=== PATIENT | male | born 1975 | race Caucasian/White ===

== ENCOUNTER 2020-10-24 09:09 | Emergency (ER) | payer OTHER, SELFPAY ==
[2020-10-24 09:14] VITALS: BP 139/83; PULSE 62; TEMP 36.7; O2SAT 98
--- NOTE | 2020-10-24 09:22 | ED.GENADUL_ITS ---
Discharge Plan Disposition Patient Disposition: HOME Condition: Stable Discharge Details Clinical Impression: Sacroiliac joint pain, Muscle spasm, Groin pain Primary Care Provider: None,None ED Provider: Stefania Mancia Home Meds and New Rx's Prescriptions: New methocarbamol 750 mg tablet 750 mg PO QID PRN (Reason: muscle spasm) Qty: 14 RF: 0 Continued ibuprofen 200 mg Tablet 600 mg PO Q6H PRNRF: 0 Discharge Instructions Instructions: Muscle Spasm (ED) Additional Instructions: Imaging is reassuring here today. Please encourage hydration. Please continue with Tylenol and/or ibuprofen as needed for discomfort. Please dose as directed on the packaging. You may continue to use lidocaine patches or other topical op tions to help with comfort as well. To help with muscle spasm, please use the methocarbamol as prescribed. As we discussed, this can make you fatigued and should not drive or operate heavy machinery while using this. Please not drink alcohol or use medication. Referral for local primary care has been sent my best to follow-up with them next week for reevaluation. If you develop changes in her bowel or bladder function, sensation changes, weakness, fevers or other new/worsening symptoms please seek care urgently once again. Also attached is referral for physical therapy, please call number at the top of the family to schedule follow-up appointment. Stand Alone Forms: Physical Therapy Referral Discharge Data Discharge Date/Time-TO BE ENTERED AT DEPARTURE: 10/24/20 11:01 Medical Decision Making Patient is a pleasant 45-year-old male presenting today with chief complaint of right lower back and right groin pain. He reports that he throws his back out approximately twice per year. States that typically with stretching and exercise this will resolve. Reports he had 1/episode approximately 1 month ago. Has been recovering well, states he was almost back to baseline. However, he reports that after doing repetitive lifting at work 4 days ago he began having his right lower back pain as well as anterior groin pain. Reports that this is worse when he is lifting, and he is in prolonged sitting or lying positions. Is having trouble getting comfortable at night before sleeping. Is using NSAIDs to help comfort. Reports the pain is radiates slightly down the anterior aspect of his thigh. No rash. Denies fevers or chills. Denies any change in bowel or bladder habits. Denies any testicular pain or abdominal pain. Denies any numbness or tingling. On exam, patient appears nontoxic. Normal gait. He reports that the movement that he is walking he does improve his discomfort. Patient indicates the SI joint area of discomfort but none is elicited with palpation. No other midline tenderness, no step-off. He has full range of motion with rotation, minimal discomfort elicited over the right SI joint when he rotates to the left. Is able to do as well. Pain is more so with flexion and again indicates over the SI joint. Patient does have pain in the groin with axial loading and rotation of the right hip. He does have good range of motion of the hip and does not have pain with this aside from feeling like it stretching. 2+ distal pulses, sensation intact, abdomen benign. Patient has no pain with palpation over the greater trochanter. Patient is back pain is most consistent with SI joint pain, also concern for muscular discomfort based on his description. However, with the patient's pain with axial loading, I am concerned about potential arthritic discomfort versus other hip pathology. He does not have evidence of trochanteric bursitis at this time. Will obtain x-rays. Will augment the NSAIDs with Tylenol and a lidocaine patch. Patient would likely benefit from muscle relaxer but describes himself here to hold off on this. However, this may help the patient with sleep. Also discussed physical therapy. I do not see any evidence at this time to suggest infectious pathology, cauda equina. FINDINGS: BONES: No acute fracture is present. No bony destructive lesion is seen. Enthesophytes at greater trochanters. Degenerative changes lower lumbar spine. Hip joint space is well maintained. JOINTS: No dislocation present. SOFT TISSUE: Normal. IMPRESSION: Unremarkable radiographs of the right hip. Unremarkable radiographs of the pelvis. Discussed the findings with the patient. Advised most consistent with SI joint pain and muscle spasm. Encourage gentle stretching, frequent ambulation. We will continue with Tylenol and ibuprofen as needed for discomfort. He will continue with topical patches to help with discomfort. We will also prescribe muscle relaxant. As patient is driving, he will wait and take this if he returns home. Will refer to physical therapy. Patient does not have a local primary care, I will asked that he get follow-up next week for reevaluation. All the return precautions were discussed. All questions and concerns were addressed with agreement this plan. HPI General Mode of arrival: ambulatory . Date/Time Provider Initiated Documentation: 10/24/20 09:22 . Limitations to Documentation: no limitations . Information obtained by: patient and RN notes reviewed . History of Present Illness 45 year old M presents to the emergency department with the chief complaint of right hip pain, described as moderate, with intensity rated at 5. Quality is described as aching, and is localized to the back, right and lower extremity. Patient reports no radiation. Patient started experiencing this day(s) (4) and it has been constant. Movement improves symptom(s), Immoblization worsens symptoms . Patient notes no other symptoms.. Patient did receive the following treatments prior to arrival, none Related Data Home Medications Medication Instructions Recorded Confirmed ibuprofen 600 mg PO Q6H PRN 10/24/20 10/24/20 methocarbamol 750 mg PO QID PRN #14 tab 10/24/20 Previous Rx's Medication Instructions Recorded methocarbamol 750 mg PO QID PRN #14 tab 10/24/20 Allergies Allergy/AdvReac Type Severity Reaction Status Date / Time No Known Allergies Allergy Unverified 10/24/20 09:20 General Stated Complaint: Orthopedic MATEO: 4 Review of Systems Constitutional Constitutional: Reports as per HPI, Denies chills, Denies fever(s) and Denies frequent falls Cardiovascular Cardiovascular: Denies chest pain, Denies dyspnea and Denies dyspnea on exertion Respiratory Respiratory: Denies dyspnea and Denies dyspnea on exertion Gastrointestinal Gastrointestinal: Denies abdominal pain, Denies change in bowel habits and Denies fecal incontinence Genitourinary Genitourinary: Reports as per HPI (denies any testicular pain), Denies urinary hesitancy and Denies urinary incontinence Musculoskeletal Musculoskeletal: Reports as per HPI, Reports back pain, Denies muscle weakness, Denies numbness, Denies radiating pain into limb, Reports stiffness and Denies tingling Integumentary/Breasts Skin/Breast: Reports as per HPI and Denies rash Neurologic Neurologic: Reports as per HPI, Denies frequent falls, Denies localized weakness, Denies numbness, Denies radicular pain, Denies sensory deficit, Denies tingling and Denies paresthesias PFSH Social History Smoking/Tobacco Use Status: Current every day Tobacco Type: cigarettes Smoking risk assessment performed?: Yes Alcohol Intake: current Alcohol Intake frequency: a few times a week Alcohol type: beer Drug use: Never Substance use type: does not use Do you feel safe at home: Yes Do you feel safe in your relationship?: Yes Exam Const General: cooperative, healthy appearing, comfortable, no acute distress, well developed and well groomed Nutritional Appearance: well nourished and overweight Orientation: alert and awake Resp Effort & Inspection: normal respiratory effort and able to speak in complete sentences Auscultation: clear to auscultation bilaterally, no rales, no rhonchi and no wheezes Cardio Rate: regular rate Rhythm: regular rhythm Heart Sounds: S1 normal and S2 normal GI Inspection: normal to inspection Palpation: nontender Back/Spine/Pelvis Back: no CVA tenderness Thoracic/Lumbar Spine: thoracic and lumbar spine normal to inspection, bend over test abnormal (causes discomfort in right SI joint), No mass, No paraspinal tenderness, thoraco-lumbar ROM limited (with forward flexion), No thoraco-lumbar spasm, No thoracic spinal tenderness, No lumbar spinal tenderness and No straight leg raise positive Pelvis: no pain with anterior-posterior compression and no pain with lateral compression Sacroiliac joints: on the right tender to palpation Sacrum: no tenderness Skin General skin exam: no rashes or lesions noted Neuro General: patient alert and patient awake Cognition: normal cognition Speech: speech normal Gait: normal gait Motor: muscle tone normal throughout, strength 5/5 throughout, no movement abnormalities noted and no fasciculations Sensory Exam: no sensory deficits noted (no saddle paresthesias) DTR's: Rt Patellar: 2+, Lt Patellar: 2+, Rt Ankle: 2+ and Lt Ankle: 2+ Extrem General: normal to inspection, full ROM, capillary refill normal, no joint enlargement, no pedal edema, no calf tenderness and normal gait Psych Appearance: grossly normal and well kempt Mental Status: mental status grossly normal Speech and Movement: speech and movement normal Course Vital Signs Vital signs: Vital Signs Temperature 36.7 C 10/24/20 09:14 Pulse 62 10/24/20 09:14 Pulse Oximetry 98 10/24/20 09:14 Temperature 36.7 C 10/24/20 09:14 Temperature Source Temporal Artery Scan 10/24/20 09:14 Pulse 62 10/24/20 09:14 Respiratory Effort Non-Labored 10/24/20 09:18 Blood Pressure Position Sitting 10/24/20 09:14 Pulse Oximetry 98 10/24/20 09:14 Oxygen Delivery Method Room Air 10/24/20 09:14 Oxygen Flow Rate 0 10/24/20 09:14 Pain Level 5 10/24/20 09:14
--- NOTE | 2020-10-24 09:30 | DI.RAD_ITS ---
Exam(s) XR HIP RT COMPLETE AP PELVIS EXAM: XR HIP RT COMPLETE AP PELVIS CLINICAL HISTORY: groin pain. TECHNIQUE: 2D digital imaging was performed. COMPARISON: No exams were available for comparison FINDINGS: BONES: No acute fracture is present. No bony destructive lesion is seen. Enthesophytes at greater tr ochanters. Degenerative changes lower lumbar spine. Hip joint space is well maintained. JOINTS: No dislocation present. SOFT TISSUE: Normal. IMPRESSION: Unremarkable radiographs of the right hip. Unremarkable radiographs of the pelvis. DATA REPOSITORY: RADIATION DOSE DELIVERED:
[2020-10-24] MEDS: Acetaminophen 500 MG TAB 1000 MG PO (09:43)
[2020-10-24] MEDS: Lidocaine 5% Patch 1 PATCH TP (09:44)
--- NOTE | 2020-10-24 10:57 | NUR.NOTE ---
referral to cm for pcp follow up
== END 2020-10-24 11:01 | disposition home or self-care (01) ==
PROVIDERS: Emergency Provider Physician Assistant
DX: M54.5 Low back pain (principal); M25.551 Pain in right hip; M53.3 Sacrococcygeal disorders, not elsewhere classified; M62.830 Muscle spasm of back; X50.3XXA Overexertion from repetitive movements, initial encounter
CPT/HCPCS: 99283; 73502; 99284

== ENCOUNTER 2020-12-08 02:02 | Outpatient (CLI) | payer OTHER, SELFPAY ==
[2020-12-08 17:15] LABS: ALT 42 U/L (16-63); AST 18 U/L (15-37); Albumin 3.9 g/dL (3.4-5.0); Alkaline Phosphatase 70 U/L (46-116); Anion Gap 8.9 mmol/L (3-11); BUN 17 mg/dL (7-18); Bilirubin, Total 0.3 mg/dL (0.2-1.0); CO2 28.1 mmol/L (21.0-32.0); CREATININE 1.2 mg/dL (0.70-1.30); Calcium 9.2 mg/dL (8.5-10.1); Chloride 106 mmol/L (98-107); Glucose 84 mg/dL (74-106); Potassium 3.9 mmol/L (3.5-5.1); Sodium 143 mmol/L (136-145)
[2020-12-08 17:35] LABS: Calculated LDL 162 mg/dL (<100); Cholesterol 249 mg/dL (<200); HDL Cholesterol 43 mg/dL (40-60); Triglyceride 224 mg/dL (<150)
[2020-12-09 10:57] LABS: HIV-1/2 Ag & Ab Screen Negative (Negative)
[2020-12-09 12:37] LABS: Hepatitis C Ab w Rflx HCV PCR Negative (Negative)
== END 2020-12-08 02:03 | disposition home or self-care (01) ==
LOC: LBO 02:03
PROVIDERS: PCP Nurse Practitioner Adult Health; Visit Provider Nurse Practitioner Adult Health
DX: Z00.00 Encounter for general adult medical examination without abnormal findings (principal); N52.9 Male erectile dysfunction, unspecified; Z13.220 Encounter for screening for lipoid disorders; Z13.1 Encounter for screening for diabetes mellitus; Z11.4 Encounter for screening for human immunodeficiency virus [HIV]; Z11.59 Encounter for screening for other viral diseases
CPT/HCPCS: 36415; 80053; 80061; 86803; 87389

== ENCOUNTER 2021-02-27 03:22 | Outpatient (CLI) | payer OTHER, SELFPAY ==
[2021-02-27 16:13] LABS: Source Nasal/Nares
[2021-02-27 21:40] LABS: COVID-19 PCR Negative (Negative)
== END 2021-02-27 03:23 | disposition home or self-care (01) ==
LOC: LBO 03:22
PROVIDERS: PCP Nurse Practitioner Adult Health; Visit Provider Surgery
DX: Z20.822 Contact with and (suspected) exposure to COVID-19 (principal); Z01.818 Encounter for other preprocedural examination
CPT/HCPCS: 87635

== ENCOUNTER 2021-02-28 09:59 | Day surgery (SDC) | payer OTHER, SELFPAY ==
--- NOTE | 2021-02-27 15:28 | HPE_ITS ---
Date of service: 02/28/21 Assessment and Plan Assessment and plan (1) Umbilical hernia: Status: Acute Assessment and plan: Risks of the surgery include but are not limited to: Bleeding/infection/pneumonia/damage to blood vessels or bladder or bowels/blood clots or PE/chronic pain/urinary retention/chronic numbness/reoccurrence/reaction to mesh requiring removal/damage to testicle or sterility/complications of anesthesia. The pt will have a pre-Op PE to ensure fitness for anesthesia. The procedure will be done with abx and under sterile conditions. The pt requires a ride home from surgery and someone to stay with t he pt for 24 hrs after anesthesia. No lifting over 5 pounds for 2 weeks after surgery. History of Present Illness Narrative: pt has a symptomatic umbilical hernia He has not had any surgery through this area before. Bleeding/infection/pneumonia/damage to blood vessels or bladder or bowels/blood clots or PE/chronic pain/urinary retention/chronic numbness/reoccurrence/reaction to mesh requiring removal, damage to bowels, adhesions or SBO, complications of anesthesia. The pt will have a pre-Op PE to ensure fitness for anesthesia. The procedure will be done with abx and under sterile conditions. The pt requires a ride home from surgery and someone to stay with the pt for 24 hrs after anesthesia. No lifting over 5 pounds for 2 weeks after surgery. Review of Systems All systems reviewed & are unremarkable except as noted in HPI and below PFSH All Active Problems Colon cancer screening (Acute) Male erectile disorder (Acute) History of nicotine dependence (Chronic) Umbilical hernia (Acute) Sacroiliac joint pain (Acute) Muscle spasm (Acute) Groin pain (Acute) Medical History Nicotine use disorder Quit nicotine 2010 Family History Brother , ( 07/05/2017) Cancer Esophageal Father Diabetes Hypertension Social History Smoking/Tobacco Use Status: Former Tobacco Use Quit Date: 03/18/05 Tobacco: How many years used: 21 Smoking risk assessment performed?: Yes Alcohol Intake: current Alcohol Intake frequency: a few times a week Alcohol type: beer Drug use: Never Substance use type: does not use Adopted: No Caregiver/Support person: No Foster care: No Household members: spouse and children Housing: house Number of Children: 4 number of grandchildren: 0 Communication Needs: None Education Level: college Details: bachelor's degree Do you need help understanding health information?: Rarely current occupation: [employer] Pets and animals: Yes Pets and animals: cat(s), dog(s), horse(s) and farm animals Sexually active: Yes Do you think of yourself as: straight/heterosexual Current gender identity: male What is your relationship status?: How often do you talk on the phone with friends or family?: three or more times per week How often do you get together with friends or relatives?: twice per week Do you belong to any clubs or organized social groups?: yes Panel score (0-1 are the most socially isolated patients): 3 What type of physical activity do you participate in: walking, weight lifting and running Duration: 30-45 minutes/day Frequency: 3-4 times per week Barbara/Tenriism: Congregational Special barbara needs: No Seatbelt use: sometimes Helmet use: No Drive intox or ride w/intox medical driver: No Do you feel safe at home: Yes Do you feel safe in your relationship?: Yes Meds Allergies and Home Medications Allergies Allergy/AdvReac Type Severity Reaction Status Date / Time No Known Allergies Allergy Verified 02/27/21 11:31 Home Medications Medication Instructions Recorded Confirmed Type ibuprofen 600 mg PO Q6H PRN 10/24/20 02/27/21 History acetaminophen 500 mg capsule 500 mg PO Q6H PRN 11/02/20 02/27/21 History naproxen 500 mg tablet 250 - 500 mg PO BID PRN #40 tab 11/02/20 02/27/21 Rx methocarbamol 750 mg tablet 750 - 1,500 mg PO QID PRN #60 tab 11/16/20 02/27/21 Rx sildenafil 100 mg tablet 50 - 100 mg PO DAILY PRN #20 tab 02/24/21 02/27/21 Rx Exam Const General: cooperative, healthy appearing, comfortable, no acute distress, well developed and well groomed Nutritional Appearance: average body habitus and well nourished Orientation: alert, awake and oriented x3 [facility] Head: normal to inspection, normocephalic and atraumatic Ears: hearing grossly normal bilaterally and external ears normal General nose exam: external nose normal Face and sinus: normal facial exam and sinuses nontender Mouth: oral mucosae normal, lip normal, tongue normal and moist mucous membranes Teeth and gingiva: dentition normal Eyes General: appearance normal, both eyes and all related structures Conjunctivae: conjunctivae normal Sclera: sclerae normal Pupils: PERRL Neck Neck: normal visual inspection and full ROM Chest Chest: normal inspection of the chest Resp Effort & Inspection: normal respiratory effort, able to speak in complete sentences, no cough, no nasal flaring, not tachypneic and no use of accessory muscles Auscultation: clear to auscultation bilaterally, no rales, no rhonchi and no wheezes Cardio Jugular venous pressure: no JVD Rate: regular rate Rhythm: regular rhythm GI Inspection: normal to inspection, no edema and non-distended Palpation: soft, no masses, nontender and No ascites Auscultation: normal bowel sounds Skin General skin exam: no rashes or lesions noted Trauma: no lacerations or abrasions Neuro General: patient alert, patient oriented x3, oriented, gait normal, moves all extremities, no focal motor deficits and CN's II-XI intact bilaterally Cognition: normal cognition Speech: speech normal Gait: normal gait Motor: muscle tone normal throughout Extrem General: normal to inspection, full ROM and no clubbing, cyanosis or edema Psych Appearance: grossly normal and well kempt Mental Status: mental status grossly normal Speech and Movement: speech and movement normal Affect: normal affect
[2021-02-28] VITALS (7 sets, daily range): BP systolic 127–148; BP diastolic 71–92; PULSE 62–72; RESP 16–22; TEMP 36.3–36.6; O2SAT 94–99; BMI 37.6
--- NOTE | 2021-02-28 09:33 | W.ANESPRE ---
General Info Date of Service Date Performed: 02/28/21 Height: 6 ft 1.5 in Weight: 131.258 kg Body Mass Index (BMI): 37.6 Surgical Procedure: Operation Date: 02/28/21 12:40 Proposed Procedures Side Surgeon p Herniorrhaphy Umbilical w/mesh Salima Dolan, Meds Allergies and Home Medications Allergies Allergy/AdvReac Type Severity Reaction Status Date / Time No Known Allergies Allergy Verified 02/28/21 10:31 Home Medication Medication Instructions Recorded ibuprofen 600 mg PO Q6H PRN 10/24/20 acetaminophen 500 mg capsule 500 mg PO Q6H PRN 11/02/20 naproxen 500 mg tablet 250 - 500 mg PO BID PRN #40 tab 11/02/20 methocarbamol 750 mg tablet 750 - 1,500 mg PO QID PRN #60 tab 11/16/20 sildenafil 100 mg tablet 50 - 100 mg PO DAILY PRN #20 tab 02/24/21 Current Visit Medications: Current Medications Generic Name Dose Route Start Last Admin Trade Name Freq PRN Reason Stop Dose Admin Ringer's Solution 1,000 mls @ 80 mls/hr 02/28/21 06:00 IV 03/29/21 23:59 INFUSION PRIMO Ondansetron HCl 4 mg/ Sodium 52 mls @ 200 mls/hr 02/28/21 07:32 Chloride IVPB Q6H PRN PRN Cefazolin Sodium/Dextrose 2 gm in 50 mls @ 100 mls/hr 02/28/21 09:15 Ancef Duplex IVPB PREOP PRIMO IV Miscellaneous Supplies 1 each 02/28/21 06:00 Iv Access IV 03/29/21 23:59 DIRECTED PRIMO Morphine Sulfate 2 mg 02/28/21 07:32 Morphine 4 Mg/Ml Syr IVP Q1H PRN PRN Sodium Chloride 0 ml 02/28/21 06:00 Normal Saline Flush 10 Ml Syr IV 03/29/21 23:59 PRN PRN Sodium Chloride 0 ml 02/28/21 06:00 Normal Saline 10 Ml Vial IJ 03/29/21 23:59 DIRECTED PRN Sterile Water 0 ml 02/28/21 06:00 Water,Injection,Sterile 10 Ml Vial IJ 03/29/21 23:59 DIRECTED PRN Tramadol HCl 50 mg 02/28/21 07:32 Tramadol 50 Mg Tab PO Q6H PRN PRN Pain PFSH Active Problems Active Problems: Problem Status Onset Code Colon cancer screening Z12.11 Male erectile disorder N52.9 History of nicotine dependence Z87.891 Umbilical hernia K42.9 Sacroiliac joint pain M53.3 Muscle spasm M62.838 Groin pain R10.30 Medical History Medical History Nicotine use disorder Quit nicotine 2010 Tobacco Smoking/Tobacco Use Status: Former Tobacco Use Tobacco: How many years used: 21 Passive smoking exposure: No Alcohol Alcohol Intake: current Alcohol intake frequency: a few times a week Alcohol type: beer Substance Use Substance use: Never Substance use type: does not use Vital Signs and Lab Results Vital Signs Most Recent Vital Signs in EMR: Temp Pulse Resp BP Pulse Ox 36.6 C 63 18 136/91 H 98 02/28/21 10:27 02/28/21 10:27 02/28/21 10:27 02/28/21 10:27 02/28/21 10:27 Lab Results Blood Type / Crossmatch: No Data to Display Complete Blood Count: No Data to Display Complete Metabolic Panel: No Data to Display Liver Function Panel: No Data to Display Coagulation Panel: No Data to Display Cardiac Panel: No Data to Display Arterial Blood Gas: No Data to Display Venous Blood Gas: No Data to Display Pancreas Panel: No Data to Display Thyroid Panel: No Data to Display Infectious Disease: Coronavirus (COVID-19)(PCR) Negative (Negative) 02/27/21 11:22 02/27/21 Coronavirus 2019 Source Nasal/Nares 02/27/21 11:22 02/27/21 Blood Cultures: No Data to Display Toxicology Panel: No Data to Display Anesthesia Assessment and Plan Anesthesia History Personal History: No History of Anesthesia Complications Family History: No Family History of Anesthesia Complications Exercise Tolerance Exercise Tolerance: Metabolic Equivalents<4 Cardiac & Pulmonary Exam Cardiac Exam: Normal S1/S2 Heart Sounds Pulmonary Exam: Clear Bilateral Breath Sounds Implantable Cardiac Device Does patient have a Pacemaker or an ICD?: No Airway Exam Known Difficult Airway: No Mallampati Class: 3 Mouth Opening: Narrow (< 3cm) Thyromental Distance: Greater than 3 cm Neck Range of Motion: Full ROM Neck Circumference: Thick Teeth Condition: Normal Dentition ASA Classification ASA Score: ASA 2 Emergency Case?: No NPO Status NPO Status: NPO Clears >2 hours, Solids >8 hours Anesthesia Plan Resuscitation Status: Full Code Anesthesia Technique: General Anesthesia Airway Planned: LMA Pain Management: Surgeon and patient request nerve block Monitors Used: Standard Monitors Preoperative Comments:: 45 yo male for umbilical hernia. Sig PMHx: former smoker, occ EtOH. Denies major issues. Occ GERD r/t diet.
[2021-02-28] MEDS: Lactated Ringers 1,000 ML 80 ML IV (11:00)
[2021-02-28] MEDS: ceFAZolin 2 GM/50 ML BAG IVPB (11:59)
--- NOTE | 2021-02-28 12:06 | W.PM.OP ---
Date of service: 02/28/21 Time of Service: 12:06 Operative Note Operative Note DATE OF PROCEDURE: 02/28/21 PRE-OP DIAGNOSIS: symptamatic umbilical hernia POST-OP DIAGNOSIS: same PROCEDURE: open repair w/ mesh SURGEON: Salima Loza CREDIT CORRESPONDENCE CLERK: Ria Morales ANESTHESIA TYPE: Local By Surgeon, General LMA/ETT and Primary Nerve Block Refer to Anesthesia Record ESTIMATED BLOOD LOSS: 5 PATHOLOGY: none sent COMPLICATIONS: None Patient was transported to: PACU Patient's condition: stable Procedure Description: The pt is here today for symptomatic umbilical hernia and is here today for repair. Informed consent was obtained, explaining risks and benefits of the procedure including but not limited to bleeding, infection, pneumonia, blood clots, recurrence, chronic pain or chronic numbness, reaction to mesh necessitating removal, complications of anesthesia and other unforetold complications. DESCRIPTION OF PROCEDURE: The patient was brought to the operating suite and placed in supine position. Anesthesia was administered per the Department of Anesthesia. Nerve block is done per the Dept of anesthesia w/ experel. Patient prepped and draped in the usual sterile fashion using DuraPrep scrub solution. IV antibiotics were administered. Pause for the cause was done. 20cc of .25% Marcaine is used for local anesthetic. A 1-inch incision was made in the inferiorly to the umbilicus. Umbilicus was dissected off the fascia. The surrounding tissue is dissected off the fascia. Omentum is protruding through the defect. This was returned to the abdomen. It is not infarcted. A small Kerlix patch was then placed in the defect, the defect was closed, over sewn with 2-0 vicryl and was copiously irrigated. An additional 10cc of Experel is is instilled into the wound at the time of closure. Deep tissue was approximated with 3-0 Vicryl and skin was approximated with 4-0 Monocryl in a running subcuticular fashion. Skin glue was applied. The patient tolerated the procedure well without complications and was transferred to recovery room in stable condition. SALIMA LOZA DO
--- NOTE | 2021-02-28 12:08 | W.PM.DSUDISC ---
Discharge Plan Disposition Patient Disposition: HOME Condition: Good Discharge Details Reason For Visit: hernia repair Attending Provider: Salima Dolan Primary Care Provider: Belle Garcia Home Meds and New Rx's Prescriptions: New tramadol 50 mg tablet 50 mg PO Q6H PRNQty: 10 RF: 0 Continued acetaminophen 500 mg capsule 500 mg PO Q6H PRNRF: 0 naproxen 500 mg tablet 250 - 500 mg PO BID PRN (Reason: pain) Qty: 40 RF: 0 methocarbamol 750 mg tablet 750 - 1,500 mg PO QID PRN (Reason: muscle spasm) Qty: 60 RF: 1 sildenafil [Viagra] 100 mg tablet 50 - 100 mg PO DAILY PRN (Reason: sexual activity) Qty: 20 RF: 3 ibuprofen 200 mg Tablet 600 mg PO Q6H PRNRF: 0 Discharge Instructions Additional Instructions: Dr. Dolan HERNIA REPAIR ? POSTOPERATIVE INSTRUCTIONS Patients who have this type of surgery can usually be expected to return to work within two weeks and have minimal amounts of discomfort. ? ACTIVITY: The day of surgery should be spent resting. However, you can be up for short periods of time, I.E., going to the bathroom or kitchen. Avoid lifting or straining. On the day following surgery, you can be up and about as desired. ? LIFTING: Restrict your lifting to no more than five (5) pounds for the first week following surgery. For the second week after surgery, don?t lift more than ten pounds. We will decide when you are done with restrictions and when you can return to work, at your follow-up appointment. No sexual activity for two weeks. ? DIET: There are no dietary restrictions following surgery. However, you may want to start with small amounts of liquids to avoid nausea the day of surgery. ? INCISION CARE: You will notice purple skin glue closing the incision. Do not peel this off- it will wear off on its own. After 24 hours you may shower. The dressing may be replaced for comfort, but is not necessary. An ice bag may be applied to the incision for 72 hours following surgery. ? SIGNS OF INFECTION: It is not unusual to have some black and blue discoloration of the skin around the incision, but also scrotum and penis. It will slowly disappear. If you have any increased redness, drainage, fever (above 100 degrees), please contact your doctor for an examination. ? DISCOMFORT: You may expect to have some mild discomfort at the incision sight. If severe pain develops you should contact your doctor for further instructions. ? URINATION: Patients who have surgery occasionally have problems urinating. If you experience problems and are not able to urinate within 6 hours following your surgery, please call your doctor immediately or go to your nearest Emergency Room for evaluation. ? DRIVING: NO driving for three (3) days after surgery, or if you are still taking narcotic pain medication. ? MEDICATIONS: Alternate Tylenol 1000mg by mouth every 8 hours and Ibuprofen 600mg every 6 hours. Make sure you take ibuprofen with food and not on an empty stomach. Take the Tylenol and ibuprofen continuously for the first 72hrs- not just when you have pain. Use the tramadol for breakthrough pain. Use ICE! Twenty minutes on, and then off, continuously for the first 72hours. If you are taking narcotic pain medication, follow the instructions on the label and do not drive. Pain medications can make you very constipated. Make sure you are moving your bowels daily. If not, take Miralax, milk of magnesia or magnesium citrate. Anesthesia makes you very constipated. Take a dose of milk of magnesia the morning after surgery. ? REPORT: Unusual swelling, severe pain, unresolved nausea, signs of infection, or difficulty in urination to your surgeon. Follow up in clinic with Dr. Dolan in 2 weeks. [phone] Activity:: see above Remove Dressings/Wound Care:: 24 hours Shower/Bathe:: 24 hours Diet:: low fat Discharge Orders Discharge Orders: Discharge Order (Routine); Ordered 02/28/21 Ordered By: Salima Dolan DS: Diagnosis Discharge Diagnosis (1) Umbilical hernia: Status: Acute
--- NOTE | 2021-02-28 12:20 | W.ANESNERVE ---
Nerve Block Single Injection Procedure Date and Time Date Performed: 02/28/21 Procedure Start: 12:05 Location Where Procedure Performed Procedure Location: Operating Room Procedure Stop: 12:12 Reason Performed: Postoperative Analgesia Requesting Provider: Salima Dolan Timeout Performed Timeout Performed: Yes Monitoring Used ECG, Blood Pressure, SpO2 and ETCO2 Sterility Sterility: Hand Hygiene, Surgical Cap, Surgical Mask, Sterile Gloves and Chlorhexidine Sedation Given During Procedure Sedation Given (Indicate Dose Given): No Sedation given Patient Mental Status Patient Mental Status: Performed under general anesthesia Nerve Block 1st Nerve Block: Laterality: Bilateral Block Type: Rectus Sheath (Bilateral) Needle / Catheter Used: 100mm SonoPlex II Local Anesthetic Bolus (Indicate Dose Given): Injected in 3-5ml increments after negative blood aspiration, Half of Total block solution given into each side, Bupivacaine 0.375% Dose:: 30 mL and Exparel Dose:: 10 mL Additives (Indicate Dose Given): None Ultrasound: Sterile probe cover and gel used Ultrasound Image Saved?: Yes Nerve Stimulator: Not Used Paresthesia: None Procedure Tolerated: No Complications Procedure Outcome: Successful Performed By: Emile Cortez
[2021-02-28] MEDS: Bupivacaine LIPOSOME/PF 133 MG/10 ML VIAL IJ (12:36)
[2021-02-28] MEDS: Bupivacaine 0.25% Pres-Free 30 ML VIAL (12:49)
[2021-02-28] MEDS: fentaNYL 100 MCG/2 ML VIAL IVP (13:10)
--- NOTE | 2021-02-28 13:32 | W.ANESPOSTOP ---
Postoperative Evaluation Date, Time and Location Date Performed: 02/28/21 Time Performed: 13:33 Patient Location: PACU Vital Signs Most Recent Imported Vital Signs: Most Recent Vital Signs Temp Pulse Resp BP Pulse Ox 36.3 C L 62 16 147/86 H 95 02/28/21 13:26 02/28/21 13:26 02/28/21 13:26 02/28/21 13:26 02/28/21 13:26 Pain Score Most Recent Pain Score: Most Recent Pain Score Pain Level 3 02/28/21 13:26 Assessment Mental Status: Awake (Alert & Oriented to Patient Baseline) Airway and Respiratory Function: Patent airway with normal (patient baseline) respiratory exam Cardiovascular Function: Hemodynamically Stable Hydration Status: Adequately Hydrated Nausea & Vomiting: No Nausea or Vomiting Pain: Pt. Denies Any Pain Peripheral Nerve Block: Regional nerve block not resolved at time of post operative discharge
[2021-02-28] MEDS: traMADol 50 MG TAB PO (13:57)
== END 2021-02-28 14:50 | disposition home or self-care (01) ==
PROVIDERS: PCP Nurse Practitioner Adult Health; Visit Provider Surgery
PROC: (CPT 49585; principal; 2021-02-28 12:30)
DX: K42.9 Umbilical hernia without obstruction or gangrene (principal); Z87.891 Personal history of nicotine dependence
CPT/HCPCS: 49585; 76942; C1781; J0690; J1100; J1885; J2250; J2405; J2704; J3010

== ENCOUNTER 2021-08-04 09:55 | Day surgery (SDC) | payer OTHER, SELFPAY ==
--- NOTE | 2021-08-03 17:06 | COLE_ITS ---
Colonoscopy Report Date of procedure: 08/04/21 Pre-op diagnosis general: CRC screening Surgeon: Salima Dolan Anesthesia Type: General:No Airway Complications: None Disposition: same day Prep: Miralax/Dulcolax Procedure Description: After informed consent was obtained the patient was taken to the procedure room and placed in a left decubitous position. Monitors were applied and a time out was done. The patients name, date of , procedure, allergies to medications and metal in their body was reviewed. The patient was then sedated. Once sedated and comfortable a rectal exam was done. External exam was normal. Internal exam revealed a normal sphincter tone and no palpable masses. The scope was then introduced and retrofelexed. No internal hemorrhoids were identified. The scope was then advanced to the cecum w/out difficulty. The TI and appendiceal orifice were identified. The prep was BBPS 2 in all segments for a total of 6. The scope was then slowly retracted over 10 minutes back into the rectum. Th there are no diverticula or AVMs. The mucosa is pink and healthy with a normal vascular pattern. He has x2 polyps in the rectum. 1 is 0 .75 cm and pedunculated. This is removed with cold biopsy forcep. The other is 5 mm flat and is also removed with a cold biopsy forcep. All specimen is retrieved and no bleeding is noted the scope was removed and the patient was woken up and taken back to Same day surgery in stable condition. The patient tolerated the procedure well and there were no immediate complications. Follow up: The patient should follow up in 7 years, path pd, unless they develop changes in bowel habits or other new gastrointestinal complaints.
[2021-08-04 10:14] VITALS: BP 143/85; PULSE 60; RESP 16; TEMP 36.6; O2SAT 98
[2021-08-04] MEDS: Lactated Ringers 1,000 ML 80 ML IV (10:38)
--- NOTE | 2021-08-04 10:45 | ANES.PREOP_ITS ---
General Info Date of Service Date Performed: 08/04/21 Height: 6 ft 1 in Weight: 129.2 kg Body Mass Index (BMI): 37.5 Surgical Procedure: Operation Date: 08/04/21 11:05 Proposed Procedure Side Surgeon p Dennis Dolan, Meds Allergies and Home Medications Allergies Allergy/AdvReac Type Severity Reaction Status Date / Time No Known Allergies Allergy Verified 08/04/21 10:21 Home Medication Medication Instructions Recorded bisacodyl 5 mg tablet,delayed 5 mg PO ONCE colonscopy bowel prep 07/28/21 release (Dulcolax (bisacodyl)) #4 tabs multivitamin 1 tab PO DAILY 07/28/21 polyethylene glycol 3350 17 238 g PO ONCE colonoscopy prep 07/28/21 gram/dose oral powder #238 grams sildenafil 100 mg tablet (Viagra) 50 - 100 mg PO DAILY PRN sexual 08/02/21 activity #20 tabs Current Visit Medications: Current Medications Generic Name Dose Route Start Last Admin Trade Name Freq PRN Reason Stop Dose Admin Hyoscyamine Sulfate 0.125 mg 08/03/21 12:45 Hyoscyamine 0.125 Mg Sl/Oral/Chew SL DIRECTED PRN Ringer's Solution 1,000 mls @ 80 mls/hr 08/04/21 06:00 08/04/21 10:38 IV 09/02/21 23:59 80 mls/hr INFUSION PRIMO Administration IV Miscellaneous Supplies 1 each 08/04/21 06:00 Iv Access IV 09/02/21 23:59 DIRECTED PRIMO Ondansetron HCl 4 mg 08/03/21 12:45 Ondansetron 4 Mg/2 Ml Vial IVP Q4H PRN PRN Nausea / Vomiting Sodium Chloride 0 ml 08/04/21 06:00 Normal Saline Flush 10 Ml Syr IV 09/02/21 23:59 PRN PRN Sodium Chloride 0 ml 08/04/21 06:00 Normal Saline 10 Ml Vial IJ 09/02/21 23:59 DIRECTED PRN Sterile Water 0 ml 08/04/21 06:00 Water,Injection,Sterile 10 Ml Vial IJ 09/02/21 23:59 DIRECTED PRN PFSH Active Problems Active Problems: Problem Status Onset Code Colon cancer screening Z12.11 History of nicotine dependence Z87.891 Medical History Medical History Groin pain Male erectile disorder Trial RX Viagra Muscle spasm Nicotine use disorder Quit nicotine 2011 Sacroiliac joint pain Medical History Comments:: 2x chipped teeth; Bottom right molar and front top Surgical History Surgical History History of umbilical hernia repair (~02/28/21) Tobacco Smoking/Tobacco Use Status: Former Tobacco Use Passive smoking exposure: No Alcohol Alcohol Intake: current Alcohol intake frequency: a few times a week Alcohol type: beer Substance Use Substance use: Never Substance use type: does not use Details: alcohol:t-3, 5-6 beers Vital Signs and Lab Results Vital Signs Most Recent Vital Signs in EMR: Most Recent Vital Signs Temp Pulse Resp BP Pulse Ox 36.6 C 60 16 143/85 H 98 08/04/21 10:14 08/04/21 10:14 08/04/21 10:14 08/04/21 10:14 08/04/21 10:14 Lab Results Blood Type / Crossmatch: No Data to Display Complete Blood Count: No Data to Display Complete Metabolic Panel: No Data to Display Liver Function Panel: No Data to Display Coagulation Panel: No Data to Display Cardiac Panel: No Data to Display Arterial Blood Gas: No Data to Display Venous Blood Gas: No Data to Display Pancreas Panel: No Data to Display Thyroid Panel: 2 No Data to Display Infectious Disease: No Data to Display Blood Cultures: No Data to Display Toxicology Panel: No Data to Display Anesthesia Assessment and Plan Anesthesia History Personal History: No History of Anesthesia Complications Family History: No Family History of Anesthesia Complications Exercise Tolerance Exercise Tolerance: Metabolic Equivalents<4 Pertinent Negatives Pertinent Negatives: No Major Cardiovascular Symptoms or Complaints and No Major Pulmonary Symptoms or Complaints Cardiac & Pulmonary Exam Cardiac Exam: Normal S1/S2 Heart Sounds Pulmonary Exam: Clear Bilateral Breath Sounds Implantable Cardiac Device Does patient have a Pacemaker or an ICD?: No Airway Exam Known Difficult Airway: No Mallampati Class: 3 Mouth Opening: Narrow (< 3cm) Thyromental Distance: Greater than 3 cm Neck Range of Motion: Full ROM Neck Circumference: Thick Teeth Condition: Normal Dentition ASA Classification ASA Score: ASA 2 Emergency Case?: No NPO Status NPO Status: NPO Clears >2 hours, Solids >8 hours Anesthesia Plan Resuscitation Status: Full Code Anesthesia Technique: General Anesthesia Airway Planned: Natural Airway Monitors Used: Standard Monitors
[2021-08-04 10:48] VITALS: BMI 37.5
--- NOTE | 2021-08-04 11:31 | BOWEL_PTH ---
PATIENT: Tanner Villagran LOC: [facility] U#:[id number] AGE/SX: 45/M ROOM: RE08/04/[address]: Salima Dolan : 1975 BED: DIS: 08/04/2021 SPEC #: [id number] RECD: 08/04/21 12:32 STATUS: CAROLINE REYesenia #: [id number] TINY: 08/04/21 11:[address]: Salima Dolan DEPT: Surgical Specimen RECD BY: Helen Reynoso ENTERED: 08/04/21 12:33 SP TYPE: Bowel OTHR DR: Belle Garcia APRN Tissues: 1 - BIOPSY BOWEL Procedures: GROSS AND MICRO LEVEL 4 Comments: [id number]
[2021-08-04 11:40] VITALS: BP 134/87; PULSE 77; RESP 18; TEMP 36; O2SAT 96
--- NOTE | 2021-08-04 11:48 | PDOC.DSDIS_ITS ---
Discharge Plan Disposition Patient Disposition: HOME Discharge Details Attending Provider: Salima Dolan Primary Care Provider: Belle Garcia Home Meds and New Rx's Prescriptions: No Action multivitamin Tablet 1 tab PO DAILY polyethylene glycol 3350 17 gram/dose powder 238 g PO ONCE Qty: 238 0RF Rx Instructions: take per colonoscopy instructions bisacodyl [Dulcolax (bisacodyl)] 5 mg tablet,delayed release (DR/EC) 5 mg PO ONCE Qty: 4 0RF Rx Instructions: take per colonoscopy instructions sildenafil [Viagra] 100 mg tablet 50 - 100 mg PO DAILY PRN (Reason: sexual activity) Qty: 20 3RF Rx Instructions: administer 30 minutes to 4 hours before activity Discharge Instructions Additional Instructions: D[facility] Colonoscopy Post- Op Instructions Instructions for Everyone who is given Anesthesia: For your safety, please do the following for the next twenty-four (24) hours: *Do Not operate a motor vehicle (car, truck, motorcycle, etc.) *Do Not drink alcoholic beverages or use any recreational drugs for the first 24 hours or while taking pain medications. The medications in your body may have a reaction that can be dangerous. *Do Not make any important decisions or sign any important papers. Findings: x2 polyps Follow up: My office will send a letter in 2 to 3 weeks time detailing as to what types of polyps they are and when we want you to repeat the colonoscopy. 1. No lifting over 20 pounds or strenuous activity for the first 24 hours after your procedure. After 24 hours there are no restrictions on your activity but you may feel fatigued for a few days. 2. After you arrive home you may have a light meal and return to your normal diet as you can tolerate it without feeling sick to your stomach. 3. You may have a bloated, gaseous feeling in your belly (abdomen) after a colonoscopy. Passing gas and belching will help. Walking or lying down on your left side with your knees flexed may relieve the discomfort. Call the office at [phone] (Office) or [phone] (Hospital) right away if you notice any of the following: a.Vomiting of blood or ?coffee ground stools?. b.Rectal bleeding 1Tbsp, blood clots or continuous bleeding. c.Severe belly (abdominal) pain. d.A hard distended belly (abdomen) and an inability to pass gas. 4. Please don?t expect to have a normal BM (bowel movement) for 2-3 days after your procedure. 5. If there are questions regarding the findings of your procedure, please contact your doctor 6. If you are unable to contact your doctor with a problem, contact the hospital at [phone]. 7. Continue all your regular medications unless directed otherwise. I understand the above instructions and have no questions. Signature of Patient or Adult Escort Name of Responsible Adult Escort Signature of Nurse Date/Time Stand Alone Forms: Anesthesia Discharge Inst., Cliff Amaral ([facility]) Activity:: see above Diet:: see above Discharge Orders Discharge Orders: Discharge Order (Routine); Ordered 08/03/21 Ordered By: Salima Dolan
[2021-08-04 12:10] VITALS: PULSE 65; RESP 18; TEMP 36.1; O2SAT 96
--- NOTE | 2021-08-04 12:42 | W.ANESPOSTOP ---
Postoperative Evaluation Date, Time and Location Date Performed: 08/04/21 Time Performed: 12:42 Patient Location: Day Surgery Unit Vital Signs Most Recent Imported Vital Signs: Most Recent Vital Signs Temp Pulse Resp BP Pulse Ox 36.1 C L 65 18 134/87 96 08/04/21 12:10 08/04/21 12:10 08/04/21 12:10 08/04/21 11:40 08/04/21 12:10 Pain Score Most Recent Pain Score: Most Recent Pain Score Pain Level 0 08/04/21 12:10 Assessment Mental Status: Awake (Alert & Oriented to Patient Baseline) Airway and Respiratory Function: Patent airway with normal (patient baseline) respiratory exam Cardiovascular Function: Hemodynamically Stable Hydration Status: Adequately Hydrated Nausea & Vomiting: No Nausea or Vomiting Pain: Pt. Denies Any Pain Peripheral Nerve Block: Patient did not receive a nerve block
== END 2021-08-04 12:45 | disposition home or self-care (01) ==
PROVIDERS: PCP Nurse Practitioner Adult Health; Visit Provider Surgery
PROC: 0DJD8ZZ Inspection of Lower Intestinal Tract, Via Natural or Artificial Opening Endoscopic (ICD-10-PCS; CPT 45378; principal; 2021-08-04 11:00)
DX: Z12.11 Encounter for screening for malignant neoplasm of colon (principal); K62.1 Rectal polyp
CPT/HCPCS: 45380; 88305

== ENCOUNTER 2023-11-20 19:41 | Outpatient (CLI) | payer MEDICAID, SELFPAY ==
--- NOTE | 2023-11-20 16:22 | DI.RAD_ITS ---
Exam(s) XR CHEST 2V PA LATERAL EXAM: XR CHEST 2V PA LATERAL CLINICAL HISTORY: Cough, R05.9; Fever, R50.9; r/o acute process. TECHNIQUE: 2D digital imaging was performed. COMPARISON: No exams were available for comparison FINDINGS: 2 views: Heart size is normal. The mediastinum is not widened. Mild increase markings noted in both lung william without air bronchograms and there are no pleural ef fusions. No pulmonary edema. No pneumothorax. No fractures evident. Small granuloma noted in the left lung base. IMPRESSION: There are subtle increased markings in both lung william, possibly within normal limits but cannot exc lude subtle bilateral infiltrates. No pleural effusions.If symptoms persist then follow-up CT scan c an be performed for added sensitivity. DATA REPOSITORY: RADIATION DOSE DELIVERED:
== END 2023-11-20 20:01 ==
PROVIDERS: PCP Nurse Practitioner Adult Health; Visit Provider Nurse Practitioner Adult Health
DX: R91.8 Other nonspecific abnormal finding of lung field (principal)
CPT/HCPCS: 71046

== ENCOUNTER 2023-12-13 01:11 | Outpatient (CLI) | payer MEDICAID, SELFPAY ==
--- NOTE | 2023-12-13 07:15 | DI.RAD_ITS ---
Exam(s) XR CHEST 2V PA LATERAL EXAM: XR CHEST 2V PA LATERAL CLINICAL HISTORY: ?Improving slowly--reassess lungs compare 11/19 CXR,COUGH,R05.9,R93.89. TECHNIQUE: 2D digital imaging was performed. COMPARISON: CR XR CHEST 2V PA LATERAL from 11/20/2023 FINDINGS: 2 views: Heart size is normal. The mediastinum is not widened. Previously described subtle increased markings both lung william decreased. Lungs are presently clear with no obvious infiltrates nor pleural effusions. No pulmonary edema. IMPRESSION: Improvement. Lungs are presently clear. DATA REPOSITORY: RADIATION DOSE DELIVERED:
== END 2023-12-13 01:31 ==
LOC: DI 01:11
PROVIDERS: PCP Nurse Practitioner Adult Health; Visit Provider Nurse Practitioner Adult Health
DX: R05.9 Cough, unspecified (principal); R93.89 Abnormal findings on diagnostic imaging of other specified body structures
CPT/HCPCS: 71046